=== PATIENT | male | born 1955 | race African-American/Black ===

== ENCOUNTER 2018-07-25 07:48 | Emergency (ER) | payer OTHER ==
[~2018-07-25 07:48] MED LIST: DIAZ10TA PO; FURO-69 PO; HYDR-2769 PO; LOSA100T14 PO; MULTIVITAMIN PO; POTA20TA12 PO; PREG100C PO; PREG300C PO; SERT100T PO; TAMS0.4C97 PO; TRAZ-120 PO
[2018-07-25] MEDS ORDERED: IV NORMAL SALINE 1,000ML 1,000 ML IV ONE ×2 (08:15→11:00)
[2018-07-25] MEDS ORDERED: ONDANSETRON PF 4 MG/2 ML VIAL. IV ONE (08:15)
[2018-07-25 08:30] LABS: HEMATOCRIT 31.4 % (39.0-53.0); MEAN CORPUSCULAR HEMOGLOBIN 33 pg (25-35); MEAN CORPUSCULAR HGB CONC 35 g/dL (31-37); MEAN CORPUSCULAR VOLUME 94 fL (79-100); PLATELET COUNT 249 x10^3/uL (140-400); RED BLOOD COUNT 3.34 x10^6/uL (4.30-5.70); RED CELL DISTRIBUTION WIDTH 16.9 % (11.5-14.5); WHITE BLOOD COUNT 10.9 x10^3/uL (4.0-11.0)
[2018-07-25] MEDS ORDERED: IOHEXOL 300 MG/ML 75 ML VIAL. IV ONE (08:30)
--- NOTE | 2018-07-25 08:40 | PHYS DOC ---
Past History Past Medical History: Anxiety, Arthritis, CHF, Depression, Hypertension, Other Past Surgical History: Other Smoking: Cigarettes, Greater than 1 pack/day Alcohol Use: Sober Drug Use: Marijuana Adult General Chief Complaint Chief Complaint: vomiting, jaundice HPI HPI 63-year-old male presents with 5 day history of vomiting and less than 24-hour history of jaundice. The patient has been feeling ill for at least 5 or 6 days. The last 3 days, he has had persistent vomiting and is not been able to keep down very much. He was able keep down some fluids last night. After he woke up this morning, his significant other discovered he was extremely yellow all over. The patient did have some dark urine this morning. He also appears to be slow to answer questions. He has not had diarrhea. He denies fever or chills. The patient does not drink alcohol in 20 years. He has not been taking high doses of acetaminophen. He denies any focal weakness or deficits. Review of Systems Review of Systems Constitutional: Denies fever or chills [] Eyes: Denies change in visual acuity, redness, or eye pain [] HENT: Denies nasal congestion or sore throat [] Respiratory: Denies cough or shortness of breath [] Cardiovascular: No additional information not addressed in HPI [] GI: Nausea, vomiting[] : Denies dysuria or hematuria [] Musculoskeletal: Denies back pain or joint pain [] Integument: Jaundice[] Neurologic: Denies headache, focal weakness or sensory changes [] Endocrine: Denies polyuria or polydipsia [] All other systems were reviewed and found to be within normal limits, except as documented in this note. Current Medications Current Medications Current Medications Medications (Trade) Dose Ordered Sig/Eleanor Start Time Stop Time Status Last Admin Dose Admin Ondansetron HCl (Zofran) 4 mg 1X ONCE 07/25/18 08:15 07/25/18 08:20 DC Sodium Chloride 1,000 ml @ 1,000 mls/hr 1X ONCE 07/25/18 08:15 07/25/18 09:14 Allergies Allergies Allergies Coded Allergies Type Severity Reaction Last Updated Verified Penicillins Allergy Intermediate 09/08/14 Yes Physical Exam Physical Exam Constitutional: Well developed, well nourished, no acute distress, jaundice appearance. [] HENT: Normocephalic, atraumatic, bilateral external ears normal, oropharynx moist, no oral exudates, nose normal. [] Eyes: PERRLA, EOMI, conjunctiva normal, no discharge. [] Neck: Normal range of motion, no tenderness, supple, no stridor. [] Cardiovascular:Heart rate regular rhythm, no murmur [] Lungs & Thorax: Bilateral breath sounds clear to auscultation [] Abdomen: Bowel sounds normal, soft, no tenderness, no masses, no pulsatile masses. [] Skin: Jaundiced from his head to his feet. Small petechiae on the abdomen[] Back: No tenderness, no CVA tenderness. [] Extremities: No tenderness, no cyanosis, no clubbing, ROM intact, no edema. [] Neurologic: Alert and oriented X 3, normal motor function, normal sensory function, no focal deficits noted. Sleepy, but arousable and answering questions appropriately.[] Psychologic: Affect normal, judgement normal, mood normal. [] EKG EKG Sinus rhythm, rate 58, normal axis, no ST elevations or depressions, inverted T waves V2 through V6[] Radiology/Procedures Radiology/Procedures [] Impressions: PQRS Compliance statement: One or more of the following individualized dose reduction techniques were utilized for this examination: 1. Automated exposure control. 2. Adjustment of the mA and/or kV according to patient size. 3. Use of iterative reconstruction technique. Indication:SEVERE JAUNDICE, REDUCED DOSE PER DEPARTMENT PROTOCOL. [id number] 60ML. CREAT 1.7,GFR 49 TECHNIQUE: CT abdomen and pelvis with IV contrast with multiplanar reformats. COMPARISON: 09/07/2014 FINDINGS: Heart is normal in size. No pericardial or pleural effusion. Motion artifact is seen in the lung bases limiting optimal evaluation. However there are interstitial opacities in the right lung base. Liver is normal in morphology. Spleen is within normal limits. Gallbladder is completely collapsed with ill-defined high attenuating densities in the gallbladder lumen. There is diffuse mild intrahepatic biliary duct dilation. CBD is not dilated. Pancreas is within normal limits. Adrenal glands demonstrate no nodularity. Simple cyst is seen in the left kidney measuring 4.0 cm. No hydronephrosis. Most likely vascular calcifications in the renal hilum. No nephrolithiasis. No enlarged retroperitoneal or pelvic adenopathy. Diffuse advanced atherosclerotic disease seen of the abdominal aorta and bilateral iliac arteries. No free pelvic fluid or ascites. No bowel obstruction. Normal appendix. Urinary bladder demonstrates small anterior diverticulum. The prostate and seminal vesicles show no large mass. No pneumoperitoneum. No suspicious bony lesion. IMPRESSION: 1. Collapsed gallbladder with cholelithiasis. 2. Diffuse intrahepatic biliary duct dilation without CBD dilation. Differential diagnoses includes an obstructing proximal CBD stone, stricture or mass. Further evaluation with MRI abdomen and MRCP with IV contrast recommended. 3. Right lung base may be secondary to aspiration or pneumonia. Electronically signed by: Yogi Moore DO (07/25/2018 9:51 AM) [id number] DICTATED AND SIGNED BY: YOGI MOORE DO DATE: 07/25/18 0940 CC: MYCHAL RUEDA DO; KORINA SCHMIDT Course & Med Decision Making Course & Med Decision Making Pertinent Labs and Imaging studies reviewed. (See chart for details) The patient's labs show elevated liver enzymes, predominantly alkaline phosphatase. He also has an elevated GGT so this does appear to be hepatic in origin. Obstruction is of concern. The patient's INR is elevated at 1.8. The patient is not on Coumadin. I have ordered a CT of the abdomen and pelvis as well as right upper quadrant ultrasound. Those are pending. His ammonia level is normal. The patient's CT shows ductal dilation of the liver. Obstruction is likely an MRCP is recommended. I discussed the patient with Dr. Hernandez at [facility] and she has accepted the patient for transfer and admission. The patient was in this emergency room for. Due to the inclement weather and inability to transfer patient's via EMS. [] Dragon Disclaimer Dragon Disclaimer This electronic medical record was generated, in whole or in part, using a voice recognition dictation system. Departure Departure: Impression: Primary Impression: Elevated liver enzymes Additional Impression: Biliary obstruction Disposition: 02 XFER SHT-TRM HOSP Condition: GUARDED Referrals: KORINA SCHMIDT (PCP) Problem Qualifiers MYCHAL RUEDA DO Jul 25, 2018 08:40
[2018-07-25 08:47] LABS: ALBUMIN 2.1 g/dL (3.4-5.0); CALCIUM 9.3 mg/dL (8.5-10.1); CREATININE 1.7 mg/dL (0.7-1.3); GFR 49.3; POTASSIUM 3.1 mmol/L (3.5-5.1)
[2018-07-25 08:56] LABS: % ATYL 2 % (0-0); % BANDS 2 % (0-9); % BASOS 1 % (0-3); % EOS 4 % (0-5); % SEGS 83 % (35-66)
[2018-07-25 08:57] LABS: % LYMPHS 6 % (24-48); % MONOS 2 % (0-10)
[2018-07-25 08:58] LABS: PLT ESTIMATE ADEQUATE (ADEQUATE)
[2018-07-25 09:00] LABS: PLATELET CLUMP PRESENT
[2018-07-25 09:01] LABS: POIKILOCYTOSIS MOD; TARGET CELLS MOD; TOXIC GRANULATION PRESENT; TOXIC VACUOLATION PRESENT
[2018-07-25 09:15] LABS: TOTAL PROTEIN 6.9 g/dL (6.4-8.2)
[2018-07-25 09:16] LABS: ALBUMIN/GLOBULIN RATIO 0.4 (1.0-1.7); DIRECT BILIRUBIN 35.7 mg/dL (0.0-0.2)
[2018-07-25 09:20] LABS: TOTAL BILIRUBIN 38.8 mg/dL (0.2-1.0)
--- NOTE | 2018-07-25 09:54 | RAD ---
PQRS Compliance statement: One or more of the following individualized dose reduction techniques were utilized for this examination: 1. Automated exposure control. 2. Adjustment of the mA and/or kV according to patient size. 3. Use of iterative reconstruction technique. Indication:SEVERE JAUNDICE, REDUCED DOSE PER DEPARTMENT PROTOCOL. [id number] 60ML. CREAT 1.7,GFR 49 TECHNIQUE: CT abdomen and pelvis with IV contrast with multiplanar reformats. COMPARISON: 09/07/2014 FINDINGS: Heart is normal in size. No pericardial or pleural effusion. Motion artifact is seen in the lung bases limiting optimal evaluation. However there are interstitial opacities in the right lung base. Liver is normal in morphology. Spleen is within normal limits. Gallbladder is completely collapsed with ill-defined high attenuating densities in the gallbladder lumen. There is diffuse mild intrahepatic biliary duct dilation. CBD is not dilated. Pancreas is within normal limits. Adrenal glands demonstrate no nodularity. Simple cyst is seen in the left kidney measuring 4.0 cm. No hydronephrosis. Most likely vascular calcifications in the renal hilum. No nephrolithiasis. No enlarged retroperitoneal or pelvic adenopathy. Diffuse advanced atherosclerotic disease seen of the abdominal aorta and bilateral iliac arteries. No free pelvic fluid or ascites. No bowel obstruction. Normal appendix. Urinary bladder demonstrates small anterior diverticulum. The prostate and seminal vesicles show no large mass. No pneumoperitoneum. No suspicious bony lesion. IMPRESSION: 1. Collapsed gallbladder with cholelithiasis. 2. Diffuse intrahepatic biliary duct dilation without CBD dilation. Differential diagnoses includes an obstructing proximal CBD stone, stricture or mass. Further evaluation with MRI abdomen and MRCP with IV contrast recommended. 3. Right lung base may be secondary to aspiration or pneumonia. Electronically signed by: Yogi Moore DO (07/25/2018 9:51 AM) [id number]
[2018-07-25] MEDS ORDERED: NALOXONE 0.4 MG/ML VIAL. IV ONE (10:30)
--- NOTE | 2018-07-25 11:03 | RAD ---
Examination: Ultrasound abdomen limited HISTORY: History of jaundice, elevated GGT levels, elevated alkaline phosphatase COMPARISON: None available FINDINGS: The right lobe of the liver measures 19.1 cm. Dilatation of the intrahepatic bile ducts. The right kidney measures 11.6 cm in length. The visualized pancreas, IVC within normal limits of dimension. The common bile duct measures 5.3 mm in transverse dimension. There is mild increased echogenicity identified in the liver. The gallbladder is mildly distended with the filling of the gallbladder with sludge or gallstones. IMPRESSION: 1. The gallbladder is filled with echogenic sludge or gallstones. 2. Intrahepatic ductal dilatation identified. MRI with MRCP is recommended for further evaluation. The visualized common bile duct measures 5.3 mm in transverse dimension which is within normal limits for the age. 3. Increased echogenicity noted throughout the liver likely hepatic steatosis. Electronically signed by: Ryan Chandler MD (07/25/2018 11:00 AM) [id number]
[2018-07-25 13:15] VITALS: BP 116/56
--- NOTE | 2018-07-25 17:43 | EKG ---
[address] [address] Test Date: 2018-07-25 Test Time: 08:15:49 Pat Name: FABIAN FINN Department: Room: Gender: M [employer]: SHUBHAM : 1955 Requested By: MYCHAL RUEDA Order Number: [id number] Reading MD: Gopi Joseph Measurements Intervals [place] Rate: 58 P: 19 GA: 172 QRS: -23 QRSD: 94 T: -8 QT: 476 QTc: 471 Interpretive Statements SINUS RHYTHM LEFTWARD AXIS T ABNORMALITY IN ANTERIOR LEADS ABNORMAL ECG Electronically Signed On 07-30-2018 8:40:22 TRAUMA COORDINATOR by Gopi Joseph
== END 2018-07-25 17:10 | disposition short-term general hospital (02) ==
LOC: ER 07:48
DX: R74.8 Abnormal levels of other serum enzymes (principal); K83.1 Obstruction of bile duct; R17 Unspecified jaundice; R11.2 Nausea with vomiting, unspecified; F41.9 Anxiety disorder, unspecified; M19.90 Unspecified osteoarthritis, unspecified site; I11.0 Hypertensive heart disease with heart failure; I50.9 Heart failure, unspecified; F32.9 Major depressive disorder, single episode, unspecified; F17.210 Nicotine dependence, cigarettes, uncomplicated; Z88.0 Allergy status to penicillin
CPT/HCPCS: 36415; 74177; 76705; 80053; 82140; 82248; 82977; 85007; 85025; 85610; 85730; 86705; 86709; 86803; 87340; 93005; 96361; 96374; 96375; 99285; J2310; J2405; Q9967; J7030